=== PATIENT | male | born 1970 | race Caucasian/White ===

== ENCOUNTER 2018-11-20 15:40 | Emergency (ER) | payer OTHER, SELFPAY ==
[2018-11-20] VITALS (11 sets, daily range): BP systolic 159–166; BP diastolic 103–122; PULSE 83–104; RESP 15–21; TEMP 36.5; O2SAT 94–97
--- NOTE | 2018-11-20 15:54 | W.ED.GENAD ---
Discharge Plan Disposition Patient Disposition: HOME Condition: Good Discharge Details Chief Complaint: Palpitatns Clinical Impression: Heart palpitations Primary Care Provider: Vasiliy Thompson ED Provider: Sanket Palomino Home Meds and New Rx's Prescriptions: No Action chlorthalidone 25 MG tablet 25 mg PO RF: 0 naproxen [Naprosyn] 500 MG tablet 500 mg PO BID PRN PRNQty: 20 RF: 0 cyclobenzaprine 10 MG tablet 10 mg PO TID PRN PRNQty: 15 RF: 0 Discharge Instructions Instructions: Palpitations (ED) Additional Instructions: Please keep the Zio patch on as directed. Please follow-up promptly with your fire extinguisher repairer inspector. We have set up a referral for you and he should be in contact with you. Additionally your primary care provider can also evaluate the report of your cardiac patch. If you notice any worsening of your symptoms, or any new symptoms such as vomiting, diarrhea, fever, chills, shortness of breath, chest pain, numbness, weakness, or fainting , please return immediately to the emergency department for reevaluation. Please follow up with your primary care provider as soon as possible for reassessment and reevaluation. As always, it was a pleasure participating in your medical care today. Referrals: Vasiliy Thompson MD [Primary Care Provider] - Medical Decision Making This is a 48-year-old male with a past medical history of a left bundle branch block, hypertension, and a negative stress test 3 years ago, presents today for evaluation of palpitations. Patient state that for the last 3 weeks he has had symptoms of these palpitations, he has had no associated exertional chest pain, chest pain in general, syncope, lightheadedness numbness tingling or weakness. He denies any red flags of previous A. fib, herbal supplements or significant caffeine intake. Patient denies any other complaints or red flags at this time. Physical exam shows no significant abnormalities. EKG shows a left bundle branch block, consistent with his stress test 3 years ago. Negative for SCARBOSSA criterion. We will evaluate for any significant electrolyte abnormality or TSH abnormality. This is normal we will give the patient a zio patch, and I feel that he would be very safe for discharge home with close follow-up with cardiology. 4:42 PM Patient's laboratory workup demonstrates no electrolyte abnormalities whatsoever, EKG does show the left bundle branch block, but no other other significant abnormalities. During the patient's stay while keeping him on the monitor and occasional palpitation was noted and corresponded to a single PVC, no signs of V. tach, sustained dysrhythmia, or other significant abnormality. The patient feels very well and is otherwise still asymptomatic with no symptoms of syncope, lightheadedness, or weakness. With normal electrolytes, negative troponin, normal TSH, I do feel that he can be safely discharged home with close follow-up with his fire extinguisher repairer inspector that he is seen before. We will set up for cardiology referral. Zio patch has been placed. We discussed red flags which return the patient understands. I have extensively reviewed the treatment plan and discharge instructions with the patient. I have addressed all patient concerns at this time. The patient was made aware of what symptoms to monitor for that would warrant a return to the emergency department. Discussed the plan with the patient, they demonstrate verbal understanding and agreement with our assessment and plan at this time. EKG 15: 54 Rate 91, NM 161, QTc 492, QRS 148, sinus rhythm with a left bundle branch block, negative for SCARBOSSA. *[facility]* *[facility]* [address] [place] [address] Stress Electrocardiography Angel Luis protocol Date of study: 05/17/2016 *PATIENT PRESENTATION* Height: 167.6cm ((66in) ) Blood Pressure: Weight: 81.8kg ((180lb) ) BSA: 1.97m^2 Ordering physician: Kofi Brooks MD Impressions: - Normal study after maximal exercise. - Hypertensive at start of test. LBBB at baseline. Excellent fucntional capacity. No subjective symptoms. No inducible arrthymias during stress test. Isolated PVC's. Hypertensive response during exercise. No signs of chronotropic incompetence. HPI General Date/Time Provider Initiated Documentation: 11/20/18 15:41. HPI Narrative: This is a pleasant 48-year-old male with a past medical history of hypertension, who presents today for evaluation of palpitations. Patient states that over the last 3 weeks he has had mild palpitations, he has been checking his pulse and he has noted some mild irregularity. He has no associated chest pain, shortness of breath, arm pain, shoulder pain, numbness, tingling, weakness, syncope, near syncope, exertional chest discomfort or exertional syncope. He denies any alcohol use, drug use, herbal supplements or other complaints. Of note he did have a stress test in 2016 which showed an underlying left bundle branch block but was otherwise negative. He does see cardiology here. He denies any other complaints at this time. He denies any family history of sudden secondary to dysrhythmia, but does have a family history of cardiac disease. He has no family history of A. fib. No other complaints or modifying factors at this time. Related Data Home Medications Medication Instructions Recorded Confirmed chlorthalidone 25 mg PO 11/19/12 09/13/14 cyclobenzaprine 10 mg PO TID PRN PRN #15 tab 09/13/14 naproxen [Naprosyn] 500 mg PO BID PRN PRN #20 tablet 09/13/14 Previous Rx's Medication Instructions Recorded cyclobenzaprine 10 mg PO TID PRN PRN #15 tab 09/13/14 naproxen [Naprosyn] 500 mg PO BID PRN PRN #20 tablet 09/13/14 Allergies Allergy/AdvReac Type Severity Reaction Status Date / Time morphine AdvReac Severe Stiff neck Unverified 09/13/14 10:52 General Stated Complaint: Palpitatns GILLIAN: 3 Review of Systems Review of Systems All systems reviewed & are unremarkable except as noted in HPI and below PFSH Social History Smoking/Tobacco Use Status: Never Drug use: Never Exam Narrative Exam Narrative: 1.Const: Well-nourished, Well-developed, appearing stated age 2.Eyes: PERRL, no conjunctival injection, and symmetrical lids. 3.ENT: Atraumatic external nose and ears. Moist MM. Neck: Symmetric, trachea midline, No thyromegaly. 4.CVS: +S1/S2, No murmurs or gallops. Peripheral pulses 2+ and equal in all extremities. Brisk capillary refill in all extremities. 5.RESP: Unlabored respiratory effort. Clear to auscultation bilaterally. No wheezes rales or rhonchi 6.GI: Soft, Nontender/Nondistended, No hepatosplenomegaly. No guarding or rebound. 7.MSK: Normocephalic/Atraumatic, Extremities w/o deformity or ttp No cyanosis or clubbing, Normal movement of all extremities 8.Skin: Warm, Dry. No rashes or lesions. 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 Sensation grossly intact, no focal neurologic deficits. 10.Psych: (AAO) x3. Appropriate mood and affect Course Vital Signs Temperature 36.5 C 11/20/18 15:45 Pulse 98 H 11/20/18 15:45 Respiratory Rate 18 11/20/18 15:45 Blood Pressure 164/103 H 11/20/18 15:45 Pulse Oximetry 97 11/20/18 15:45 Temperature 36.5 C 11/20/18 15:45 Temperature Source Temporal Artery Scan 11/20/18 15:45 Pulse 98 H 11/20/18 15:45 Respiratory Rate 18 11/20/18 15:45 Respiratory Effort Short of Breath 11/20/18 15:47 Blood Pressure 164/103 H 11/20/18 15:45 Blood Pressure Position Sitting 11/20/18 15:45 Pulse Oximetry 97 11/20/18 15:45 Oxygen Delivery Method Room Air 11/20/18 15:45 Oxygen Flow Rate 0 11/20/18 15:45 Pain Level 0 11/20/18 15:45
--- NOTE | 2018-11-20 15:57 | ED.GENADUL_ITS ---
Discharge Plan Disposition Patient Disposition: HOME Condition: Good Discharge Details Chief Complaint: Palpitatns Clinical Impression: Heart palpitations Primary Care Provider: Vasiliy Thompson ED Provider: Sanket Palomino Home Meds and New Rx's Prescriptions: No Action chlorthalidone 25 MG tablet 25 mg PO RF: 0 naproxen [Naprosyn] 500 MG tablet 500 mg PO BID PRN PRNQty: 20 RF: 0 cyclobenzaprine 10 MG tablet 10 mg PO TID PRN PRNQty: 15 RF: 0 Discharge Instructions Instructions: Palpitations (ED) Additional Instructions: Please keep the Zio patch on as directed. Please follow-up promptly with your supervisor [employer]. We have set up a referral for you and he should be in contact with you. Additionally your primary care provider can also evaluate the report of your cardiac patch. If you notice any worsening of your symptoms, or any new symptoms such as vomiting, diarrhea, fever, chills, shortness of breath, chest pain, numbness, weakness, or fainting , please return immediately to the emergency department for reevaluation. Please follow up with your primary care provider as soon as possible for reassessment and reevaluation. As always, it was a pleasure participating in your medical care today. Referrals: Vasiliy Thompson MD [Primary Care Provider] - Medical Decision Making This is a 48-year-old male with a past medical history of a left bundle branch block, hypertension, and a negative stress test 3 years ago, presents today for evaluation of palpitations. Patient state that for the last 3 weeks he has had symptoms of these palpitations, he has had no associated exertional chest pain, chest pain in general, syncope, lightheadedness numbness tingling or weakness. He denies any red flags of previous A. fib, herbal supplements or significant caffeine intake. Patient denies any other complaints or red flags at this time. Physical exam shows no significant abnormalities. EKG shows a left bundle branch block, consistent with his stress test 3 years ago. Negative for SCARBOSSA criterion. We will evaluate for any significant electrolyte abnormality or TSH abnormality. This is normal we will give the patient a zio patch, and I feel that he would be very safe for discharge home with close follow-up with cardiology. 4:42 PM Patient's laboratory workup demonstrates no electrolyte abnormalities whatsoever, EKG does show the left bundle branch block, but no other other significant abnormalities. During the patient's stay while keeping him on the monitor and occasional palpitation was noted and corresponded to a single PVC, no signs of V. tach, sustained dysrhythmia, or other significant abnormality. The patient feels very well and is otherwise still asymptomatic with no symptoms of syncope, lightheadedness, or weakness. With normal electrolytes, negative troponin, normal TSH, I do feel that he can be safely discharged home with close follow-up with his supervisor [employer] that he is seen before. We will set up for cardiology referral. Zio patch has been placed. We discussed red flags which return the patient understands. I have extensively reviewed the treatment plan and discharge instructions with the patient. I have addressed all patient concerns at this time. The patient was made aware of what symptoms to monitor for that would warrant a return to the emergency department. Discussed the plan with the patient, they demonstrate verbal understanding and agreement with our assessment and plan at this time. EKG 15: 54 Rate 91, [place] 161, QTc 492, QRS 148, sinus rhythm with a left bundle branch block, negative for SCARBOSSA. *[facility]* *[facility]* [address] [place] [address] Stress Electrocardiography Angel Luis protocol Date of study: 05/17/2016 *PATIENT PRESENTATION* Height: 167.6cm ((66in) ) Blood Pressure: Weight: 81.8kg ((180lb) ) BSA: 1.97m^2 Ordering physician: Kofi Brooks MD Impressions: - Normal study after maximal exercise. - Hypertensive at start of test. LBBB at baseline. Excellent fucntional capacity. No subjective symptoms. No inducible arrthymias during stress test. Isolated PVC's. Hypertensive response during exercise. No signs of chronotropic incompetence. HPI General Date/Time Provider Initiated Documentation: 11/20/18 15:41 . HPI Narrative: This is a pleasant 48-year-old male with a past medical history of hypertension, who presents today for evaluation of palpitations. Patient states that over the last 3 weeks he has had mild palpitations, he has been checking his pulse and he has noted some mild irregularity. He has no associated chest pain, shortness of breath, arm pain, shoulder pain, numbness, tingling, weakness , syncope, near syncope, exertional chest discomfort or exertional syncope. He denies any alcohol use, drug use, herbal supplements or other complaints. Of note he did have a stress test in 2016 which showed an underlying left bundle branch block but was otherwise negative. He does see cardiology here. He denies any other complaints at this time. He denies any family history of sudden secondary to dysrhythmia, but does have a family history of cardiac disease. He has no family history of A. fib. No other complaints or modifying factors at this time. Related Data Home Medications Medication Instructions Recorded Confirmed chlorthalidone 25 mg PO 11/19/12 09/13/14 cyclobenzaprine 10 mg PO TID PRN PRN #15 tab 09/13/14 naproxen [Naprosyn] 500 mg PO BID PRN PRN #20 tablet 09/13/14 Previous Rx's Medication Instructions Recorded cyclobenzaprine 10 mg PO TID PRN PRN #15 tab 09/13/14 naproxen [Naprosyn] 500 mg PO BID PRN PRN #20 tablet 09/13/14 Allergies Allergy/AdvReac Type Severity Reaction Status Date / Time morphine AdvReac Severe Stiff neck Unverified 09/13/14 10:52 General Stated Complaint: Palpitatns GILLIAN: 3 Review of Systems Review of Systems All systems reviewed & are unremarkable except as noted in HPI and below PFSH Social History Smoking/Tobacco Use Status: Never Drug use: Never Exam Narrative Exam Narrative: 1.Const: Well-nourished, Well-developed, appearing stated age 2.Eyes: PERRL, no conjunctival injection, and symmetrical lids. 3.ENT: Atraumatic external nose and ears. Moist MM. Neck: Symmetric, trachea midline, No thyromegaly. 4.CVS: +S1/S2, No murmurs or gallops. Peripheral pulses 2+ and equal in all extremities. Brisk capillary refill in all extremities. 5.RESP: Unlabored respiratory effort. Clear to auscultation bilaterally. No wheezes rales or rhonchi 6.GI: Soft, Nontender/Nondistended, No hepatosplenomegaly. No guarding or sreekanth ound. 7.MSK: Normocephalic/Atraumatic, Extremities w/o deformity or ttp No cyanosis or clubbing, Normal movement of all extremities 8.Skin: Warm, Dry. No rashes or lesions. 9.Neuro: review assistant II-XII grossly intact. Sensation grossly intact, no focal neurologic deficits. 10.Psych: (AAO) x3. Appropriate mood and affect Course Vital Signs Temperature 36.5 C 11/20/18 15:45 Pulse 98 H 11/20/18 15:45 Respiratory Rate 18 11/20/18 15:45 Blood Pressure 164/103 H 11/20/18 15:45 Pulse Oximetry 97 11/20/18 15:45 Temperature 36.5 C 11/20/18 15:45 Temperature Source Temporal Artery Scan 11/20/18 15:45 Pulse 98 H 11/20/18 15:45 Respiratory Rate 18 11/20/18 15:45 Respiratory Effort Short of Breath 11/20/18 15:47 Blood Pressure 164/103 H 11/20/18 15:45 Blood Pressure Position Sitting 11/20/18 15:45 Pulse Oximetry 97 11/20/18 15:45 Oxygen Delivery Method Room Air 11/20/18 15:45 Oxygen Flow Rate 0 11/20/18 15:45 Pain Level 0 11/20/18 15:45
[2018-11-20 16:09] LABS: Abs Immature Grans 0.01 k/cumm (0.0-0.09); Absolute Basophil Count 0.02 k/cumm (0.0-0.2); Absolute Eosinophil Count 0.05 k/cumm (0.0-0.7); Absolute Monocyte Count 0.49 k/cumm (0.11-0.7); Basophils % 0.4; HGB 16.7 g/dL (13.5-17.5); Immature Grans % 0.2; Lymphocytes % 27.1; Mean Corp. HGB Concentration 35.5 g/dL (32.0-36.0); Mean Corpuscular Hemoglobin 30.6 pg (27.0-33.0); Mean Corpuscular Volume 86.1 fL (80-95); Monocytes % 9.5; Neutrophils % 61.8; Platelet Count 192 x1000/uL (130-400); RBC 5.46 m/cumm (4.50-6.00); RBC Distribution Width 12.2 % (11.8-14.1); White Blood Cell Count 5.17 k/cumm (4.4-10.8)
[2018-11-20 16:34] LABS: ALT 26 U/L (12-78); AST 20 U/L (15-37); Albumin 3.9 g/dL (3.4-5.0); Alkaline Phosphatase 65 U/L (46-116); Anion Gap 6.2 mmol/L (3-11); BUN 15 mg/dL (7-18); Bilirubin, Total 0.5 mg/dL (0.2-1.0); CO2 28.8 mmol/L (21.0-32.0); CREATININE 1.13 mg/dL (0.70-1.30); Calcium 8.9 mg/dL (8.5-10.1); Chloride 106 mmol/L (98-107); Glucose 93 mg/dL (70-100); Magnesium 2.1 mg/dL (1.8-2.4); Potassium 3.7 mmol/L (3.5-5.1); Sodium 141 mmol/L (136-145); TSH (W/Ref FT4) 1.38 uIU/mL (0.358-3.74)
[2018-11-20 16:39] LABS: Troponin I < 0.02 ng/mL (0.00-0.06)
--- NOTE | 2018-11-23 08:06 | PDOC.ERCMPRO ---
Care Management Progress Note 11/23-Dr. Palomino requested assistance with a cardiology consult in 2 1/2 weeks for palpitations. Patient had zio patch placed. [facility] this [facility].
--- NOTE | 2018-12-14 10:18 | ZIOP_ITS ---
DATE OF DICTATION: December 14, [address]: 12 days, 14 hours, November 20 - December 08, 2018 Baseline rhythm sinus. Rare single PAC. Single burst of SVT, 4-beat duration at 143 bpm. Rare single PVC. No VT. No bradycardia or block. 33 triggered events, all occurring during sinus rhythm +/- single PAC/single PVC, heart rates 68-125 bpm. No symptoms. Average heart rate sinus 76 bpm, range 46-141 bpm.
== END 2018-11-20 17:15 | disposition home or self-care (01) ==
PROVIDERS: Emergency Provider Student in an Organized Health Care Education/Training Program; PCP Internal Medicine
DX: R00.2 Palpitations (principal); I44.7 Left bundle-branch block, unspecified; I10 Essential (primary) hypertension
CPT/HCPCS: 0296T; 36415; 80053; 93005; 99284; 83735; 84443; 84484; 85025; 93010

== ENCOUNTER 2019-03-12 19:12 | Emergency (ER) | payer OTHER, SELFPAY ==
[2019-03-12] VITALS (11 sets, daily range): BP systolic 104–144; BP diastolic 89–99; PULSE 61–74; RESP 1–20; TEMP 36.6; O2SAT 100
[2019-03-12] MEDS: Lactated Ringers 1,000 ML 150 ML IV (19:30)
--- NOTE | 2019-03-12 19:32 | ED.GENADUL_ITS ---
Discharge Plan Disposition Patient Disposition: [facility] Condition: Critical Discharge Details Chief Complaint: CodeBlue Clinical Impression: Cardiac arrest with ventricular fibrillation, Hypokalemia Primary Care Provider: None,None ED Provider: Bran Oshea Home Meds and New Rx's Prescriptions: No Action No Known Home Meds RF: 0 Medical Decision Making 19:45 -- Patient was seen immediately on arrival. Patient in critical condition on arrival. 48-year-old male with history of hypertension and PVCs arrives via EMS sudden collapse, received immediate bystander CPR and defibrillated by medics successfully with return of spontaneous circulation, approximately 10 minutes of downtime. Now slightly confused but responding to verbal stimuli. Patient notes that he suddenly felt lightheaded and collapsed. He denies having any chest pain prior to episode and now after episode. --ECG was reviewed and interpreted by me: Significant artifact, sinus rhythm 88 bpm, left bundle branch block pattern present with inappropriate concordance V4 and V5, left bundle branch is old compared to prior ECG from 11/20/2018. 19:51 --I spoke with [facility] transfer center and Dr. Fermin, cardiology, I discussed ED presentation and course and requested emergent transfer. Dr. Fermin recommended heparin bolus and infusion, Plavix 600 and aspirin. Patient has been accepted by Dr. Mcintyre at [facility]. I have requested [facility] to expedite transportation. Will give heparin 4900 U and infusion 1000U/hr Patient now having some PVCs. On reassessment he continues to deny chest pain. Plan to give amiodarone 150 mg IV. Chest x-ray was reviewed and interpreted by me at bedside, no significant widening of mediastinum. Will initiate heparin bolus and drip. Awaiting [facility]. 20:05 --repeat ECG reviewed and interpreted by me, of note, lead position did change: Sinus rhythm 62 bpm, left bundle branch block, T wave inversion noted V4 Labs reviewed and initial troponin less than 0.05. Potassium noted to be 2.9. I will give potassium 20 mEq IV. Of note AST and ALT are both elevated. 20:25 --patient reassessed multiple times. Patient now noting that he is having sensation of heartburn substernally. Plan to initiate nitroglycerin infusion. 20:45 --repeat ECG #3 reviewed and interpreted by me: QRS complex appears more narrow, now with biphasic T waves V1 and V2 with deep T wave inversion V3 and T wave inversion V4. I called and spoke again with Dr. Fermin and updated her as to ED course. [facility] air transport team here to transport patient. Patient stable for transport to higher level of care at this time. Patient and patient's informed of risk of transportation and consents to transport. Lab Data Lab results reviewed: Yes I reviewed the patient's lab results. Laboratory Tests Range/Units 03/12/19 03/12/19 03/12/19 19:32 19:32 19:32 WBC (4.4-10.8) k/cumm 7.64 RBC (4.50-6.00) m/cumm 5.18 Hgb (13.5-17.5) g/dL 15.8 Hct (40.0-50.0) % 44.4 MCV (80-95) fL 85.7 MCH (27.0-33.0) pg 30.5 MCHC (32.0-36.0) g/dL 35.6 RDW (11.8-14.1) % 12.2 Plt Count (130-400) x1000/uL 210 MPV (8.0-11.0) fL 10.6 Immature Gran % 0.4 Neutrophils % 47.7 Lymphocytes % 42.8 Monocytes % 7.2 Eosinophils % 1.6 Basophils % 0.3 Absolute Neutrophils (1.2-6.7) k/cumm 3.65 Absolute Lymphocytes (1.2-3.4) k/cumm 3.27 Absolute Monocytes (0.11-0.7) k/cumm 0.55 Absolute Eosinophils (0.0-0.7) k/cumm 0.12 Absolute Basophils (0.0-0.2) k/cumm 0.02 PT (9.3-11.0) sec 10.1 INR (0.9-1.1) 1.0 APTT (21.0-31.4) sec 21.2 Sodium (136-145) mmol/L 144 Potassium (3.5-5.1) mmol/L 2.9 L* Chloride (98-107) mmol/L 105 Carbon Dioxide (21.0-32.0) mmol/L 20.7 L Anion Gap (3-11) mmol/L 18.3 H BUN (7-18) mg/dL 16 Creatinine (0.70-1.30) mg/dL 1.41 H Estimated GFR/1.73 m2 (mL/min/1.73m2) 53.88 Glucose (70-100) mg/dL 182 H Calcium (8.5-10.1) mg/dL 8.5 Magnesium (1.8-2.4) mg/dL 2.2 Total Bilirubin (0.2-1.0) mg/dL 0.5 AST (15-37) U/L 152 H ALT (12-78) U/L 198 H Alkaline Phosphatase (46-116) U/L 68 Troponin I (0.00-0.06) ng/mL < 0.05 Total Protein (6.4-8.2) g/dL 6.5 Albumin (3.4-5.0) g/dL 3.5 Urine Color (Yellow) Urine Clarity (Clear) Urine pH (5-8) Ur Specific [place] (1.005-1.025) Urine Protein (Negative) mg/dL Urine Ketones (Negative) mg/dL Urine Blood (Negative) Urine Nitrite (Negative) Urine Bilirubin (Negative) Urine Urobilinogen (Up TO 0.2) EU/dL Ur Leukocyte Esterase (Negative) Urine RBC (0-2) Urine WBC (0-5) HPF Ur Epithelial Cells (Negative) HPF Urine Crystals (Negative) HPF Urine Bacteria (Negative) HPF Urine Casts (Negative) LPF Urine Mucus (Negative) Urine Other (Negative) Ur Culture Indicated? Urine Glucose (Negative) mg/dL Range/Units 03/12/19 19:45 WBC (4.4-10.8) k/cumm RBC (4.50-6.00) m/cumm Hgb (13.5-17.5) g/dL Hct (40.0-50.0) % MCV (80-95) fL MCH (27.0-33.0) pg MCHC (32.0-36.0) g/dL RDW (11.8-14.1) % Plt Count (130-400) x1000/uL MPV (8.0-11.0) fL Immature Gran % Neutrophils % Lymphocytes % Monocytes % Eosinophils % Basophils % Absolute Neutrophils (1.2-6.7) k/cumm Absolute Lymphocytes (1.2-3.4) k/cumm Absolute Monocytes (0.11-0.7) k/cumm Absolute Eosinophils (0.0-0.7) k/cumm Absolute Basophils (0.0-0.2) k/cumm PT (9.3-11.0) sec INR (0.9-1.1) APTT (21.0-31.4) sec Sodium (136-145) mmol/L Potassium (3.5-5.1) mmol/L Chloride (98-107) mmol/L Carbon Dioxide (21.0-32.0) mmol/L Anion Gap (3-11) mmol/L BUN (7-18) mg/dL Creatinine (0.70-1.30) mg/dL Estimated GFR/1.73 m2 (mL/min/1.73m2) Glucose (70-100) mg/dL Calcium (8.5-10.1) mg/dL Magnesium (1.8-2.4) mg/dL Total Bilirubin (0.2-1.0) mg/dL AST (15-37) U/L ALT (12-78) U/L Alkaline Phosphatase (46-116) U/L Troponin I (0.00-0.06) ng/mL Total Protein (6.4-8.2) g/dL Albumin (3.4-5.0) g/dL Urine Color (Yellow) Yellow Urine Clarity (Clear) Clear Urine pH (5-8) 7.0 Ur Specific [place] (1.005-1.025) 1.025 Urine Protein (Negative) mg/dL >=300 H Urine Ketones (Negative) mg/dL Negative Urine Blood (Negative) Small H Urine Nitrite (Negative) Negative Urine Bilirubin (Negative) Negative Urine Urobilinogen (Up TO 0.2) EU/dL 0.2 Ur Leukocyte Esterase (Negative) Negative Urine RBC (0-2) 3-5 H Urine WBC (0-5) HPF 0-2 Ur Epithelial Cells (Negative) HPF Negative Urine Crystals (Negative) HPF Negative Urine Bacteria (Negative) HPF Few Urine Casts (Negative) LPF Negative Urine Mucus (Negative) Negative Urine Other (Negative) Negative Ur Culture Indicated? No Urine Glucose (Negative) mg/dL 100 HPI General Mode of arrival: EMS . Date/Time Provider Initiated Documentation: 03/12/19 19:27 . Limitations to Documentation: altered mental status . Information obtained by: EMS . HPI Narrative: 48-year-old male with history of PVCs and hypertension presents with EMS after episode of cardiac arrest. Patient apparently collapsed at home. Bystander immediately started performing CPR. EMS was called and arrived to scene with a 5 minutes. Patient was found t o be in V. fib arrest. 2 defibrillation shocks were given and patient regained spontaneous circulation on second defibrillation attempts. No epinephrine was given. Patient had return of mentation. He is somewhat confused but able to respond to verbal stimuli. Related Data Home Medications Medication Instructions Recorded Confirmed Unknown [No Known Home Meds] 12/03/18 12/03/18 Allergies Allergy/AdvReac Type Severity Reaction Status Date / Time morphine AdvReac Severe Stiff neck Unverified 12/03/18 09:48 General GILLIAN: 3 Review of Systems Review of Systems Patient denies pain. Review of systems limited secondary to acuity of condition [facility] Social History Smoking/Tobacco Use Status: Never Drug use: Never Exam Const General: cooperative Nutritional Appearance: average body habitus Orientation: alert [facility] Head: normocephalic and atraumatic Mouth: moist mucous membranes Eyes Conjunctivae: normal conjunctivae Sclera: normal sclerae Neck Neck: trachea midline and supple Resp Auscultation: clear to auscultation bilaterally, no rales, no rhonchi and no wheezes Cardio Jugular venous pressure: no JVD Rate: regular rate and not tachycardic Rhythm: regular rhythm GI Palpation: soft, not firm, no guarding, no masses, not rigid and nontender Skin General skin exam: no rashes or lesions noted Neuro General: alert, awake, oriented Patient Orientation: Person and Place, tone normal and no focal motor deficits Speech: speech normal Motor: muscle tone normal throughout Sensory Exam: no sensory deficits noted Extrem General: no edema Psych Appearance: grossly normal Critical Care Time Critical Care Time: Yes Total Critical Care Time: 80 Attestation: I spent greater than 80 minutes addressing this patient's immediate life threats.
[2019-03-12 19:41] LABS: Abs Immature Grans 0.03 k/cumm (0.0-0.09); Absolute Basophil Count 0.02 k/cumm (0.0-0.2); Absolute Eosinophil Count 0.12 k/cumm (0.0-0.7); Absolute Lymphocyte Count 3.27 k/cumm (1.2-3.4); Absolute Monocyte Count 0.55 k/cumm (0.11-0.7); Absolute Neutrophil Count 3.65 k/cumm (1.2-6.7); Basophils % 0.3; Eosinophils % 1.6; HCT 44.4 % (40.0-50.0); HGB 15.8 g/dL (13.5-17.5); Immature Grans % 0.4; Lymphocytes % 42.8; Mean Corp. HGB Concentration 35.6 g/dL (32.0-36.0); Mean Corpuscular Hemoglobin 30.5 pg (27.0-33.0); Mean Corpuscular Volume 85.7 fL (80-95); Mean Platelet Volume 10.6 fL (8.0-11.0); Monocytes % 7.2; Neutrophils % 47.7; Platelet Count 210 x1000/uL (130-400); RBC 5.18 m/cumm (4.50-6.00); RBC Distribution Width 12.2 % (11.8-14.1); White Blood Cell Count 7.64 k/cumm (4.4-10.8)
--- NOTE | 2019-03-12 19:48 | DI.RAD_ITS ---
SYMPTOM/DIAGNOSIS: S/P ARREST PORTABLE AP CHEST: There are no priors for comparison. The cardiac silhouette is at the upper limits of normal given the projection. The lungs are clear. No effusions or pneumothoraces are identified. The bones are intact. Cardiac monitoring equipment is seen on the chest. IMPRESSION: No acute pulmonary process.
[2019-03-12] MEDS: Amiodarone 150 MG/3 ML VIAL IVP (19:52)
[2019-03-12 19:56] LABS: Bilirubin Negative (Negative); Blood Small (Negative); Clarity Clear (Clear); Glucose 100 mg/dL (Negative); Ketones Negative (Negative); Leukocyte Esterase Negative (Negative); Nitrite Negative (Negative); Specific Gravity 1.025 (1.005-1.025); Urobilinogen 0.2 EU/dL (Up TO 0.2)
[2019-03-12] MEDS: Clopidogrel 300 MG TAB 600 MG PO (19:58)
[2019-03-12] MEDS: Aspirin 325 MG TAB PO (19:58)
[2019-03-12] MEDS: Ondansetron 4 MG/2 ML VIAL IVP (20:00)
[2019-03-12 20:02] LABS: ALT 198 U/L (12-78); AST 152 U/L (15-37); Albumin 3.5 g/dL (3.4-5.0); Alkaline Phosphatase 68 U/L (46-116); Anion Gap 18.3 mmol/L (3-11); BUN 16 mg/dL (7-18); Bilirubin, Total 0.5 mg/dL (0.2-1.0); CO2 20.7 mmol/L (21.0-32.0); CREATININE 1.41 mg/dL (0.70-1.30); Calcium 8.5 mg/dL (8.5-10.1); Chloride 105 mmol/L (98-107); Estimated GFR 53.88 (mL/min/1.73m2); Glucose 182 mg/dL (70-100); Magnesium 2.2 mg/dL (1.8-2.4); Sodium 144 mmol/L (136-145); Total Protein 6.5 g/dL (6.4-8.2)
[2019-03-12 20:06] LABS: PTT Activated 21.2 sec (21.0-31.4); Potassium 2.9 mmol/L (3.5-5.1); Prothrombin Time 10.1 sec (9.3-11.0); Troponin I < 0.05 ng/mL (0.00-0.06)
[2019-03-12 20:07] LABS: Bacteria Few HPF (Negative); Crystals Negative HPF (Negative); Epithelial Cells Negative HPF (Negative); Mucus Negative (Negative); Other Cells Negative (Negative); WBC 0-2 HPF (0-5)
[2019-03-12 20:08] LABS: C & S Indicated? No; Casts Negative LPF (Negative)
--- NOTE | 2019-03-12 20:12 | DI.VRAD_ITS ---
EXAM: XR Chest, 1 View EXAM DATE/TIME: 03/12/2019 7:30 PM CLINICAL HISTORY: 48 years old, male; Other: Post arrest TECHNIQUE: Imaging protocol: XR of the chest, 1 view. COMPARISON: No relevant prior studies available. FINDINGS: Lungs: The lung volumes are low. The lungs are clear. Pleural space: There is no effusion or pneumothorax. Heart/Mediastinum: The heart is upper normal in size. EKG wires and limited chest. Bones/joints: Unremarkable. Other findings: Impression IMPRESSION: Hypoventilation. No acute cardiopulmonary findings on chest x-ray. Dictated and Authenticated by: Olga Gusman MD. Ordering:CORBY Sotomayor MD
[2019-03-12 20:13] LABS: *AMPHETAMINES SCREEN URINE Negative (Negative); *BARBITURATES SCREEN URINE Negative (Negative); *BENZODIAZEPINES SCREEN URINE Negative (Negative); Cannabinoids THC Negative (Negative); Cocaine Screen,Urine Negative (Negative); METHADONE URINE SCREEN Negative (Negative); OPIATES URINE SCREEN Negative (Negative); Tricyclic Antidepressants Negative (Negative)
[2019-03-12] MEDS: POTASSIUM CHLORIDE 20 MEQ/100 ML BAG 50 MEQ IVPB (20:13)
[2019-03-12 20:57] LABS: Troponin I < 0.05 ng/mL (0.00-0.06)
--- NOTE | 2019-03-12 21:09 | NUR.NOTE ---
Nursing Note: Ambulance toned at 1857 for CPR in progress. Patient found by on couch with grunting respirations. Patient brought to floor and CPR was initiated. EMS arrived and found him to be in Vfib. 2 shocks were given and 4 min of CPR were performed. EMS established 2 18 G IV's in bilateral AC's. The inital 12 lead showed SR with occasional PVC's and BBB. Patient arrived in the ED at 192. Patient alert talking and oriented. His lungs were clear VS were stable at this time. Labs were drawn from established IV an sent at 193 193 patients defib pad were changed to house pads as calex pads were not working any longer. At 194 a 16 F gillespie was placed. a Portable chest xray was performed.
== END 2019-03-12 21:00 | disposition short-term general hospital (02) ==
PROVIDERS: Emergency Provider Student in an Organized Health Care Education/Training Program
DX: I46.9 Cardiac arrest, cause unspecified (principal); I48.92 Unspecified atrial flutter; E87.6 Hypokalemia; I44.7 Left bundle-branch block, unspecified; I10 Essential (primary) hypertension
CPT/HCPCS: 36415; 80053; 80307; 93005; 96365; 96368; 96375; 99291; 99292; 71045; 81003; 81015; 83735; 84484; 85025; 85610; 85730; 93010; J2405; J3480

== ENCOUNTER 2019-10-05 11:09 | Outpatient (CLI) | payer OTHER, SELFPAY ==
--- NOTE | 2019-10-05 10:34 | DI.RAD_ITS ---
EXAM: XR SHOULDER LT COMPLETE 2+V INDICATION: PAIN. COMPARISON: No exams were available for comparison TECHNIQUE: 2D digital imaging was performed. FINDINGS: No bone or joint abnormality is identified. The soft tissues are unremarkable.
== END 2019-10-05 11:29 ==
PROVIDERS: PCP Internal Medicine; Visit Provider Student in an Organized Health Care Education/Training Program
DX: M25.512 Pain in left shoulder (principal)
CPT/HCPCS: 73030

== ENCOUNTER 2021-09-07 08:39 | Outpatient (CLI) | payer OTHER, SELFPAY ==
[2021-09-07 22:51] LABS: COVID-19 RT-PCR UVMMC Result Negative (Negative)
== END 2021-09-07 08:40 | disposition home or self-care (01) ==
LOC: LBO 08:41
PROVIDERS: PCP Internal Medicine; Visit Provider Nurse Practitioner Family
DX: Z20.822 Contact with and (suspected) exposure to COVID-19 (principal)
CPT/HCPCS: U0003

== ENCOUNTER 2022-07-04 15:17 | Outpatient (REF) | payer OTHER, SELFPAY ==
[2022-07-04 16:03] LABS: Anion Gap 10.6 mmol/L (3-11); BUN 21 mg/dL (7-18); CO2 26.4 mmol/L (21.0-32.0); CREATININE 1.1 mg/dL (0.70-1.30); Calcium 8.9 mg/dL (8.5-10.1); Calculated LDL 162 mg/dL (<100); Chloride 106 mmol/L (98-107); Cholesterol 226 mg/dL (<200); Estimated GFR 81.78 (mL/min/1.73m2); Glucose 88 mg/dL (74-106); HDL Cholesterol 37 mg/dL (40-60); Potassium 4.2 mmol/L (3.5-5.1); Sodium 143 mmol/L (136-145); Triglyceride 138 mg/dL (<150)
== END 2022-07-04 15:18 | disposition home or self-care (01) ==
LOC: NCHCN 15:17
PROVIDERS: PCP Internal Medicine; Visit Provider Internal Medicine
DX: I10 Essential (primary) hypertension (principal); M54.59 Other low back pain; Z00.00 Encounter for general adult medical examination without abnormal findings; Z95.810 Presence of automatic (implantable) cardiac defibrillator
CPT/HCPCS: 80048; 80061

== ENCOUNTER 2022-07-24 15:40 | Outpatient (REF) | payer OTHER, SELFPAY ==
[2022-07-27 10:54] LABS: COVID-19 RT-PCR UVMMC Result Negative (Negative)
== END 2022-07-24 15:41 | disposition home or self-care (01) ==
LOC: LBN 15:40
PROVIDERS: PCP Internal Medicine; Visit Provider Physician Assistant Medical
DX: R05.8 Other specified cough (principal); J02.9 Acute pharyngitis, unspecified; Z20.822 Contact with and (suspected) exposure to COVID-19
CPT/HCPCS: U0003; 87070

== ENCOUNTER 2023-05-26 12:27 | Emergency (ER) | payer OTHER, SELFPAY ==
[2023-05-26 12:28] VITALS: BP 173/116; PULSE 53; RESP 15; TEMP 36.7; O2SAT 97
--- NOTE | 2023-05-26 12:34 | W.ED.GENAD ---
Discharge Plan Disposition Patient Disposition: Home Discharge Details Clinical Impression: Hydronephrosis of left kidney, Ureterolithiasis, Proteinuria Primary Care Provider: Vasiliy Thompson ED Provider: Etienne Adrian Home Meds and New Rx's Prescriptions: New oxycodone 5 mg tablet 5 mg PO Q8H PRNQty: 3 0RF Continued losartan 50 mg tablet 50 mg PO DAILY metoprolol succinate 100 mg capsule,sprinkle,ER 24hr 150 mg PO DAILY Rx Instructions: Current med list: take 1.5 tab PO daily 150mg Paxlovid 300 mg (150 mg x 2)-100 mg tablets,dose pack See Rx Instructions PO PER PKG DIR Qty: 30 0RF Rx Instructions: PO PER PKG DIR sotalol 160 mg tablet 160 mg PO BID Discharge Instructions Additional Instructions: You were seen in the emergency department for your flank pain. Your CAT scan shows sign of a kidney stone. This stone measures approximately 5 x 4 mm. This should pass on its own. Please ensure that you stay hydrated by drinking plenty of water. For your pain please take medications as follows: 1. Take acetaminophen (Tylenol), 1,000 mg (two 500 mg tabs) every 6 hours 2. Take ibuprofen (Advil), 400 mg every 6 hours. You are also receiving several stronger oral medications to take for pain if the above medications do not work. If you develop any nausea or vomiting or cannot keep down your pain medicines or have worsening pain please return to the emergency department. Please do not drive drink alcohol or use any heavy machinery after taking the use of stronger pain medicines. Your urinalysis showed no sign of infection but did show some signs of protein in your urine. Please follow-up with your primary care provider concerning this abnormal finding as you may benefit from a repeat urinalysis. Discharge Data Discharge Date/Time-TO BE ENTERED AT DEPARTURE: 05/26/23 15:50 HPI General Date/Time Provider Initiated Documentation: 05/26/23 12:34. HPI Narrative: HPI This is a 52-year-old male with history of hypertension hyperlipidemia AICD now with right flank pain which began 2 hours ago. Patient has a history of prior ureterolithiasis. He has never required any urological procedures. He has previously passed stones spontaneously. He has had no fevers nor dysuria nor frequency. He did not pass out. He is nauseous but has not been vomiting. No chest pain or shortness of breath. Has not noticed a rash to his abdomen nor flank. Did not fall. 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 Exam General: Well-appearing in no acute distress speaking in complete sentences. Head: Normocephalic, atraumatic. Eye: Extraocular eye movements intact. No conjunctival injection. No scleral icterus. Ear, nose, mouth, throat: Grossly normal inspection. Normal voice, handling secretions normally. Neck: Trachea midline. Cardiovascular: Well-perfused distal extremities. Respiratory: Nonlabored respiration. Gastrointestinal: Nondistended abdomen. Musculoskeletal: No edema. Moving all 4 extremities spontaneously. Soft nontender. Back: No rash to back. Skin: Normal for age and race, grossly normal temperature and turgor. No acute rash. Neurologic: Alert and appropriate, no apparent acute deficits. Psychiatric: Mood and manner are appropriate. Grooming and personal hygiene are appropriate. MDM This is an overall well-appearing normothermic and not tachycardic 52-year-old male with right flank pain history of ureterolithiasis with right hydronephrosis concerning for recurrent ureterolithiasis for which patient will undergo CT scan to assess for stone size & location. Will also assess of renal function and urinalysis to ensure that he does not have a urinary tract infection. No pain or proportion to suggest necrotizing soft tissue infection. No abdominal pain nor hypotension nor syncope to suggest ruptured aortic aneurysm. No cough to suggest lower lobe pneumonia. No shortness of breath to suggest PE. Will order ondansetron for nausea ketorolac for pain and provide a 500 cc crystalloid bolus. 2:33 PM Patient's basic metabolic panel showing no anion gap. No GRANT. Normal potassium. CBC showing no anemia no thrombocytopenia. No leukocytosis. CT scan showing hydronephrosis but no obvious stone. I have asked health rn intensive care unit [facility] to have the patient seen within the next week by urology in the setting of his 5 x 4 mm right mid ureteral stone. I reviewed the patient's prescription drug monitoring website and patient had no outpatient prescriptions for opiates nor benzodiazepines. I ordered the patient for 3 oxycodone tablets to use PRN for breakthrough pain followig scheduled acetaminophen & ibuprofen. I instructed him on not drinking alcohol driving or operating any machinery while taking opiates. I advised that he initially take acetaminophen and ibuprofen. We will ensure that he does not have a UTI. 3:30 PM Proteinuria patient does have proteinuria on urinalysis. He has large blood but nitrite negative reassuring against UTI. 05/28 I called the patient at home to inquire as to how he was feeling. He reported persistent but manageable flank pain. He could not say whether or not his pain had migrated interiorly. I advised ED return if his pain became unbearable. Otherwise I recommended outpatient PMD fu. Chronic conditions affecting the care of the patient: Nonischemic cardiomyopathy hypertension hyperlipidemia. History obtained from an outside historian: N/A External record review: [facility] EMR showing nonischemic cardiomyopathy hypertension hyperlipidemia ICD and ventricular tachycardia Medications: Ketorolac ondansetron Social determinants of health affecting disposition: N/A Management discussed with: N/A Treatment/interventions considered: N/A Response to therapies provided: improved pain & nausea in the ED Related Data Home Medications Medication Instructions Recorded Confirmed losartan 50 mg tablet 50 mg PO DAILY 10/04/19 05/26/23 metoprolol succinate 100 mg 150 mg PO DAILY 10/05/19 05/26/23 capsule sprinkle, ext. release 24 hr nirmatrelvir 300 mg (150 mg See Rx Instructions PO PER PKG DIR 09/28/22 x2)-ritonavir 100 mg tablet,dose #30 tabs pack (Paxlovid) oxycodone 5 mg tablet 5 mg PO Q8H PRN #3 tabs 05/26/23 sotalol 160 mg tablet 160 mg PO BID 05/26/23 05/26/23 Previous Rx's Medication Instructions Recorded nirmatrelvir 300 mg (150 mg See Rx Instructions PO PER PKG DIR 09/28/22 x2)-ritonavir 100 mg tablet,dose #30 tabs pack (Paxlovid) oxycodone 5 mg tablet 5 mg PO Q8H PRN #3 tabs 05/26/23 Allergies Allergy/AdvReac Type Severity Reaction Status Date / Time lisinopril Allergy Mild Unverified 05/26/23 12:32 morphine AdvReac Severe Stiff neck Unverified 05/26/23 12:32 General Stated Complaint: FlankPain GILLIAN: 3 PFSH All Active Problems (Updated 05/26/23 @ 15:32 by Etienne Adrian MD) Hydronephrosis of left kidney (Acute) Ureterolithiasis (Acute) Proteinuria (Acute) Tendinitis of left rotator cuff (Acute) Bursitis of left shoulder (Acute) Impingement syndrome of left shoulder (Acute) Acetabular labrum tear (Acute) Left bundle branch block (Acute) Hx of cardiac arrest (Acute) Nonischemic cardiomyopathy (Acute) Automatic implantable cardiac defibrillator in situ (Acute) Shoulder pain, left (Acute) Hypertension (Chronic) Candidiasis (Acute 07/26/13) Globus sensation (Acute 07/26/13) Social History Smoking/Tobacco Use Status: Never Smoking risk assessment performed?: Yes Alcohol Intake: current Alcohol Intake frequency: holidays/special occasions only Alcohol type: beer Drug use: Never Substance use type: does not use Housing: house Current gender identity: male Do you feel safe at home: Yes Do you feel safe in your relationship?: Yes Course Vital Signs Vital signs: Vital Signs Temperature 36.7 C 05/26/23 12:28 Pulse 53 L 05/26/23 12:28 Respiratory Rate 15 05/26/23 12:28 Blood Pressure 173/116 H 05/26/23 12:28 Pulse Oximetry 97 05/26/23 12:28 Temperature 36.7 C 05/26/23 12:28 Temperature Source Temporal Artery Scan 05/26/23 12:28 Pulse 53 L 05/26/23 12:28 Respiratory Rate 15 05/26/23 12:28 Respiratory Effort Normal 05/26/23 12:31 Blood Pressure 173/116 H 05/26/23 12:28 Blood Pressure Position Sitting 05/26/23 12:28 Pulse Oximetry 97 05/26/23 12:28 Oxygen Delivery Method Room Air 05/26/23 12:28 Oxygen Flow Rate 0 05/26/23 12:28 Pain Level 7 05/26/23 12:28 POCUS Exam (ED) Limited Retroperitoneal(Renal)Exam DATE OF EXAM: 05/26/23 TIME OF EXAM: 13:37 REASON FOR EXAM: Flank pain/right side VISUALIZED STRUCTURES: Left kidney, Right kidney and Other structures: Bladder INCIDENTAL FINDINGS: Mild Right-sided hydronephrosis. Exam complete PAWSS Have you Been Recently Intoxicated or Drunk Within the Last 30 days?: No Have you Ever Experienced Previous Episodes of Alcohol Withdrawal?: No Have you ever Experienced Withdrawal Seizures?: No Have you ever Experienced Delirium Tremens(DT)s?: No Have you ever undergone Alcohol Rehabilitation Treatment (i.e, inpt ot outpatient treatment programs)?: No Have you ever Experienced Blackouts?: No Have you ever Combined Alcohol with other Downers within the last 90 days?: No Have you ever Combined Alcohol with any other Substance of Abuse during the last 90 days?: No Result: 0
[2023-05-26] MEDS: Normal Saline 500 ML IV (13:56)
[2023-05-26] MEDS: Ketorolac 15 MG/ML VIAL IVP (13:56)
[2023-05-26] MEDS: Ondansetron 4 MG/2 ML VIAL IVP (13:56)
[2023-05-26 14:06] LABS: Abs Immature Grans 0.03 10^3/uL (0.0-0.06); Absolute Basophil Count 0.03 10^3/uL (0.0-0.2); Absolute Eosinophil Count 0.09 10^3/uL (0.0-0.7); Absolute Lymphocyte Count 1.03 10^3/uL (1.2-3.4); Absolute Neutrophil Count 3.04 10^3/uL (1.2-6.7); Basophils % 0.6; Eosinophils % 1.9; HCT 46.2 % (40.0-50.0); HGB 16.6 g/dL (13.5-17.5); Immature Grans % 0.6; Lymphocytes % 22.3; MCHC 35.9 % (32.0-36.0); MCV 86 fL (80-95); MPV 9.7 fL (8.0-11.0); Monocytes % 8.7; Neutrophils % 65.9; Platelet Count 169 10^3/uL (130-400); RBC 5.35 10^6/uL (4.36-5.78); RDW 11.7 % (11.8-14.1); RDW-SD 36.9 fL; WBC 4.62 10^3/uL (4.4-10.8)
--- NOTE | 2023-05-26 14:21 | DI.CT_ITS ---
Exam(s) CT ABDOMEN PELVIS WO EXAM: CT ABDOMEN PELVIS WO CLINICAL HISTORY: Right flank pain. TECHNIQUE: Imaging Protocol: Axial computed tomography images with coronal and sagittal reformatted images were created and reviewed CONTRAST MATERIAL: Intravenous: none Oral: None COMPARISON: No exams were available for comparison FINDINGS: VISUALIZED LUNG BASES: No nodules nor pleural effusions evident. Cardiac pacemaker wires noted ABDOMEN: There is no ascites. LIVER: There are no obvious focal hepatic lesions evident of this noninfused study. GALLBLADDER/BILIARY: No obvious gallbladder pathology. CBD is not dilated. PANCREAS: No evidence of pancreatic mass nor dilatation of the pancreatic duct. SPLEEN: Spleen is not enlarged. No obvious intrasplenic lesions. ADRENALS: There are no significant adrenal masses. KIDNEYS:Left kidney unremarkable. There is an obstructing calculus in the mid right ureter with mild hydronephrosis and perinephric streaking of the right kidney above this level. The size of this danyelle culus measures 5 x 4 mm. No other remaining calculi in the kidneys nor lower down the ureters and th ere are no radiopaque calculi evident in the urinary bladder lumen. ABDOMINAL AORTA: Abdominal aorta is not enlarged. LYMPH NODES: There is no retroperitoneal nor paraaortic adenopathy. ABDOMINAL WALL: No evidence of significant anterior abdominal wall nor inguinal hernia. GI: There is no evidence of bowel obstruction, free air, nor abscess. PELVIS: LYMPH NODES: There is no intrapelvic nor inguinal adenopathy. GI: No evidence of appendicitis.No evidence of sigmoid diverticulitis. URINARY BLADDER: No calculi nor obvious masses evident REPRODUCTIVE: Prostate size normal. Seminal vesicles unremarkable. OSSEOUS: No significant osseous lesions. Fractures. IMPRESSION: 1. There is an obstructing 5 mm calculus in the right ureter at the L3 level. There is mild hydronep hrosis above this level with perinephric streaking. No other radiopaque calculi evident. RADIATION DOSE DELIVERED: 844.33mGy.cm Total DLP DATA REPOSITORY: All CT scans at this facility are submitted to the National Radiology Data Registry (NRDR) Dose Index Registry (DIR) with the [employer] ([employer]). RADIATION OPTIMIZATION: All CT scans at this facility use at least one of these dose optimization te chniques: automated exposure control; mA and/or kV adjustment per patient size (includes targeted exa ms where dose is matched to clinical indication); or iterative reconstruction.
[2023-05-26 14:22] LABS: Anion Gap 5.8 mmol/L (3-11); BUN 16 mg/dL (7-18); CO2 28.2 mmol/L (21.0-32.0); CREATININE 1.3 mg/dL (0.70-1.30); Chloride 104 mmol/L (98-107); Estimated GFR 66.51 (mL/min/1.73m2); Glucose 111 mg/dL (74-106); Potassium 4.5 mmol/L (3.5-5.1); Sodium 138 mmol/L (136-145)
--- NOTE | 2023-05-26 14:47 | NUR.NOTE ---
Referral faxed to [facility] for kidney stone in 1 week Nursing Note:
[2023-05-26 15:10] LABS: Bilirubin Negative (Negative); Blood Large (Negative); Clarity Sl Cloudy (Clear); Glucose Negative (Negative); Ketones Negative (Negative); Leukocyte Esterase Negative (Negative); Nitrite Negative (Negative); Specific Gravity 1.025 (1.005-1.025); Urobilinogen 0.2 mg/dL (Up to 0.2); pH 5.5 (5-8)
[2023-05-26 15:21] LABS: Bacteria Negative HPF (Negative); C & S Indicated? No; Casts 0-2 Hyaline LPF (Negative); Crystals Negative HPF (Negative); Epithelial Cells Rare HPF (Negative); Mucus Trace (Negative); RBC >50 HPF (0-2); WBC Negative HPF (0-5)
== END 2023-05-26 15:50 | disposition home or self-care (01) ==
PROVIDERS: Emergency Provider Emergency Medicine; PCP Internal Medicine
DX: N13.2 Hydronephrosis with renal and ureteral calculous obstruction (principal); R80.9 Proteinuria, unspecified; I10 Essential (primary) hypertension; Z86.74 Personal history of sudden cardiac arrest; Z95.810 Presence of automatic (implantable) cardiac defibrillator
CPT/HCPCS: 36415; 76775; 80048; 96374; 96375; 99284; 74176; 81003; 81015; 85025; 99285; J1885; J2405

== ENCOUNTER 2024-07-16 13:59 | Outpatient (CLI) | payer OTHER, SELFPAY ==
--- NOTE | 2024-07-16 13:45 | RT.EKG_ITS ---
APPROVED REPORT Exam: Resting ECG Reason for Exam: baseline Patient Location: O HR:66 bpm ECG Measurements Heart Rate 66 AXIS CA 180 P 30 QRSd 144 QRS -36 QT 483 T 7 QTc 507 Conclusion Sinus rhythm...normal P axis, V-rate 50- 99 Left bundle branch block...QRSd>120, broad/notched R
== END 2024-07-16 14:00 | disposition home or self-care (01) ==
LOC: DI.CARD 13:59
PROVIDERS: PCP Family Medicine; Visit Provider Internal Medicine Cardiovascular Disease
DX: I44.7 Left bundle-branch block, unspecified (principal)
CPT/HCPCS: 93010

== ENCOUNTER 2024-12-01 02:17 | Outpatient (CLI) | payer OTHER, SELFPAY ==
--- NOTE | 2024-12-01 13:30 | DI.US_ITS ---
APPROVED REPORT EXAM: Comprehensive 2D, Doppler, and color-flow Echocardiogram Patient Location: Out-Patient [place] Hand: Miguel Gurrola RDCS (AE) Indications: Check LV function, nonischemic cardiomyopathy Other Information Study Quality: Adequate Conclusion Normal left ventricular wall thickness and chamber size. Ejection fraction is 45%. There is global hypokinesis Normal right ventricular size and function Both atria are normal in size Device lead noted in the right heart There are no structural valvular abnormalities Estimated right ventricular systolic pressure is 28 mmHg Wall motion Left Ventricle The left ventricle is normal size. Left ventricular systolic function is mildly decreased. There is n ormal left ventricular wall thickness. There is global hypokinesis of the left ventricle. There is no ventricular septal defect visualized. LVEF is 45%. Right Ventricle The right ventricle is normal size. Right ventricular systolic function is grossly normal. Device jerome d is present in the right ventricle. Atria The left atrium size is normal. The right atrium size is normal. The interatrial septum is intact wit h no evidence for an atrial septal defect. Aortic Valve The aortic valve is normal in structure. Aortic valve is trileaflet. There is no aortic valvular sten osis. No aortic regurgitation is present. Mitral Valve The mitral valve is normal in structure. No evidence of mitral valve stenosis. There is no mitral evelia ve regurgitation noted. Tricuspid Valve The tricuspid valve is normal in structure. There is no tricuspid valve stenosis. Moderate tricuspid regurgitation. The RVSP is 28.1 mmHg. Pulmonic Valve The pulmonary valve is normal in structure. There is no pulmonic valvular stenosis. There is no pulmo peggy valvular regurgitation. Great Vessels The aortic root is normal in size. The ascending aorta is normal in size. Aortic arch is normal in ca liber. IVC is normal in size and collapses >50% with inspiration. Pericardium There is no pericardial effusion. 2D Dimensions IVSD d PLAX 0.88 cm M: 0.6-1.2 Ao Root d 2.92 cm M: 3.1 - 3.7 LVPW d PLAX 0.87 cm M: 0.6 - 1.2 Ao Asc Diam d 3.15 cm M: 2.6 - 3.4 LVID d PLAX 5.08 cm M: 4.2 - 5.8 LVDs 4.08 cm M: 2.5 - 4.0 LV EF Teichholz 40.3 % FS 19.75 % LV EDV (Teich) 122.7 mL LV ESV (Teich) 73.3 mL Stroke Vol Index (Teich) 25.24 M-Mode TAPSE 1.27 cm (M/F) >1.7 Auto EF LV EDV A4C 96.7 mL LV EDV A2C 99.6 mL LV EDV BP 99.5 mL LV ESV A4C 53.0 mL LV ESV A2C 56.6 mL LV ESV BP 54.5 mL LVEF(%) A4C 45.2 % LVEF(%) A2C 43.2 % LVEF(%) BP 45.2 % LV SV A4C 43.7 ml LV SV A2C 43.1 ml LV SV BP 45.0 ml LV CO A4C 2.3 L/min LV CO A2C 2.3 L/min LV CO BP 2.3 L/min HR A4C 53.02 BPM HR A2C 52.54 BPM LV EDV Index (BP) LA Volume LA Length A4C 3.8 cm LA Length A2C 4.6 cm LA Area A4C s 8.05 cm2 LA Area A2C s 12.75 cm2 LA Vol A4C A-L 14.36 mL LA Vol A2C A-L 30.07 mL LA Vol Biplane A-L 22.8 mL LA Vol/BSA A4C A-L LA Vol/BSA A2C A-L LA Vol/BSA BP A-L 11.6 mL/m2 LA Vol A4C MOD 14.2 mL LA Vol A2C MOD 27.3 mL LA Vol BP MOD 21.0 mL RA Volume RA Area A4C 6.0 cm2 RA ESV A4C (A-L) 7.9mL RA Vol/BSA A4C A-L RA Length A4C 3.9 cm RA ESV A4C (MOD) 7.2mL LV Diastology MV E' medial 0.043 (>0.07 m/s) MV E Vmax 0.58 (0.4-1.3 m/s) MV E/E' MED 13.43 (<14) MV A Vmax 0.70 (0.4-1.3 m/s) MV E' lateral 0.051 (>0.1 m/s) E/A Ratio 0.8 MV E/E' LAT 11.45 (<14) MV E' Average 0.047 m/s MV E/E'(average) 12.36 Aortic Valve AoV Vmax 0.98 m/s LVOT Vmax 0.78 m/s AoV Peak Grad 3.9 mmHg LVOT Peak Grad 2.4 mmHg AoV Area (Vmax) 2.59 cm2 LVOT VTI 0.174 m AoV VTI 0.232 m LVOT Mean Grad 1.3 mmHg AoV Mean Mike. 0.72 m/s LVOT SV 56.90 mL AoV Mean Grad 2.4 mmHg LVOT Diam s 2.00 cm AoV Area (VTI) 2.46 cm2 AV Regurg Peak Gr. 3.87 mmHg Velocity Ratio 0.80 Mitral Valve MV DT 341 (160-240 msec) MV Vmax TIPS 0.67 m/s MV Mean Grad 0.5 (<2mmHg) MV VTI 0.179 m Pulmonary Valve PV Vmax 0.61 (0.5-1.5 m/s) RVOT Vmax 0.40 m/s PV Peak Grad 1.5 mmHg RVOT Peak Gr. 0.7 mmHg PV Mean Mike 0.38 m/s RVOT VTI 0.098 m PV Mean Grad 0.7 mmHg RVOT Mean Gr. 0.3 mmHg Tricuspid Valve RA Pressure 3.00 mmHg TR Vmax 2.51 m/s TV S' 0.08 m/s TR Peak Grad 25.1 mmHg RVSP (TR) 28.1 mmHg
== END 2024-12-01 02:37 ==
LOC: DI 02:18
PROVIDERS: PCP Family Medicine; Visit Provider Internal Medicine Cardiovascular Disease
DX: I42.8 Other cardiomyopathies (principal); Z95.810 Presence of automatic (implantable) cardiac defibrillator
CPT/HCPCS: 93306

== ENCOUNTER 2024-12-01 14:05 | Outpatient (CLI) | payer OTHER, SELFPAY ==
[2024-12-01 14:19] LABS: Abs Immature Grans 0.02 10^3/uL (0.0-0.06); Absolute Basophil Count 0.04 10^3/uL (0.0-0.2); Absolute Eosinophil Count 0.12 10^3/uL (0.0-0.7); Absolute Lymphocyte Count 1.31 10^3/uL (1.2-3.4); Absolute Monocyte Count 0.51 10^3/uL (0.1-0.8); Absolute Neutrophil Count 2.72 10^3/uL (1.2-6.7); Basophils % 0.8 %; Eosinophils % 2.5 %; HCT 49.3 % (40.0-50.0); HGB 16.9 g/dL (13.5-17.5); Immature Grans % 0.4 %; Lymphocytes % 27.8 %; MCH 30.7 pg (27.0-33.0); MCHC 34.3 % (32.0-36.0); MCV 90 fL (80-95); MPV 9.8 fL (8.0-11.0); Monocytes % 10.8 %; Neutrophils % 57.7 %; Platelet Count 175 10^3/uL (130-400); RDW 12.2 % (11.8-14.1); RDW-SD 40.1 fL; WBC 4.72 10^3/uL (4.4-10.8)
[2024-12-01 14:35] LABS: ALT 32 U/L (16-63); AST 20 U/L (15-37); Albumin 3.8 g/dL (3.4-5.0); Alkaline Phosphatase 70 U/L (46-116); Anion Gap 5.7 mmol/L (3-11); BUN 13 mg/dL (7-18); Bilirubin, Total 0.8 mg/dL (0.2-1.0); CO2 33.3 mmol/L (21.0-32.0); CREATININE 1.2 mg/dL (0.70-1.30); Chloride 106 mmol/L (98-107); Estimated GFR 72.31 (mL/min/1.73m2); Glucose 90 mg/dL (74-106); Potassium 4.6 mmol/L (3.5-5.1); Sodium 145 mmol/L (136-145); Total Protein 6.9 g/dL (6.4-8.2)
== END 2024-12-01 14:06 | disposition home or self-care (01) ==
LOC: LBO 14:05
PROVIDERS: PCP Family Medicine; Visit Provider Family Medicine
DX: I10 Essential (primary) hypertension (principal)
CPT/HCPCS: 36415; 80053; 85025

== ENCOUNTER 2025-01-05 07:56 | Outpatient (CLI) | payer OTHER, SELFPAY ==
--- NOTE | 2025-01-05 07:45 | RT.EKG_ITS ---
APPROVED REPORT Exam: Resting ECG Reason for Exam: cardiac arrest Patient Location: O HR:64 bpm ECG Measurements Heart Rate 64 AXIS AZ 174 P 31 QRSd 152 QRS -36 QT 466 T 10 QTc 481 Conclusion Sinus rhythm...normal P axis, V-rate 50- 99 Left bundle branch block...QRSd>120, broad/notched R
== END 2025-01-05 07:57 | disposition home or self-care (01) ==
LOC: DI.CARD 07:56
PROVIDERS: PCP Family Medicine; Visit Provider Registered Nurse
DX: Z95.810 Presence of automatic (implantable) cardiac defibrillator (principal); Z86.74 Personal history of sudden cardiac arrest; I44.7 Left bundle-branch block, unspecified
CPT/HCPCS: 93010

== ENCOUNTER 2025-07-04 10:02 | Outpatient (REF) | payer OTHER, SELFPAY ==
[2025-07-04 16:13] LABS: HCT 47.7 % (40.0-50.0); HGB 16.6 g/dL (13.5-17.5); MCH 30.5 pg (27.0-33.0); MCHC 34.8 % (32.0-36.0); MCV 88 fL (80-95); MPV 10.7 fL (8.0-11.0); Platelet Count 159 10^3/uL (130-400); RBC 5.45 10^6/uL (4.36-5.78); RDW 11.6 % (11.8-14.1); RDW-SD 37.1 fL; WBC 5.54 10^3/uL (4.4-10.8)
[2025-07-04 16:51] LABS: ALT 30 U/L (16-63); AST 18 U/L (15-37); Albumin 3.8 g/dL (3.4-5.0); Alkaline Phosphatase 69 U/L (46-116); Anion Gap 7.9 mmol/L (3-11); BUN 18 mg/dL (7-18); Bilirubin, Total 0.4 mg/dL (0.2-1.0); CO2 30.1 mmol/L (21.0-32.0); Calcium 8.8 mg/dL (8.5-10.1); Chloride 105 mmol/L (98-107); Cholesterol 207 mg/dL (<200); Glucose 92 mg/dL (74-106); HDL Cholesterol 34 mg/dL (>or=40); Potassium 4.7 mmol/L (3.5-5.1); Sodium 143 mmol/L (136-145); Total Protein 6.7 g/dL (6.4-8.2)
[2025-07-04 22:47] LABS: PSA, Screening 1.0 ng/mL (<=3.5)
== END 2025-07-04 10:03 | disposition home or self-care (01) ==
LOC: NCHCN 10:02
PROVIDERS: PCP Family Medicine; Visit Provider Family Medicine
DX: Z12.5 Encounter for screening for malignant neoplasm of prostate (principal); I10 Essential (primary) hypertension; E78.5 Hyperlipidemia, unspecified
CPT/HCPCS: 80053; 80061; 84153; 85027